=== PATIENT | female | born 2000 ===

== ENCOUNTER 2023-02-22 10:47 | Outpatient (CLI) | payer OTHER | END 2023-02-22 12:12 | disposition home or self-care (01) | LOC: PRENATAL 10:47 | PROVIDERS: ATTEND Obstetrics & Gynecology Maternal & Fetal Medicine | DX: O35.3XX0 Maternal care for (suspected) damage to fetus from viral disease in mother, not applicable or unspecified (principal); O36.8199 Decreased fetal movements, unspecified trimester, other fetus; O44.00 Complete placenta previa NOS or without hemorrhage, unspecified trimester; Z3A.33 33 weeks gestation of pregnancy ==

== ENCOUNTER 2023-03-22 14:51 | Outpatient (CLI) | payer OTHER | END 2023-03-22 16:31 | disposition home or self-care (01) | LOC: PRENATAL 14:51 | PROVIDERS: ATTEND Obstetrics & Gynecology Maternal & Fetal Medicine | DX: O26.849 Uterine size-date discrepancy, unspecified trimester (principal); O36.8199 Decreased fetal movements, unspecified trimester, other fetus; O32.9XX0 Maternal care for malpresentation of fetus, unspecified, not applicable or unspecified; Z3A.37 37 weeks gestation of pregnancy ==